=== PATIENT | female | born 1990 | race Caucasian/White ===

== ENCOUNTER 2016-08-23 10:41 | Day surgery (SDC) | payer OTHER ==
[~2016-08-23] VITALS: Ht 154.9 cm; Wt 41.2 kg
[~2016-08-23 10:41] MED LIST: ALBU8CC IH; DOCO200C4 PO; LACTATED RINGERS 1,000 ML IV ONE; LACTATED RINGERS 1,000 ML IV SCH; LEVO500T16 PO; MOME13HF2 IH; MONT10TA21 PO; NORE-142 PO; OXYMETAZOLINE 0.05% NASAL SPRAY (AFRIN) 15 ML BTL ONE; OXYMETAZOLINE 0.05% NASAL SPRAY (AFRIN) 15 ML BTL SCH; SODIUM CHLORIDE FLUSH 3 ML SYR IV SCH; SODIUM CHLORIDE FLUSH 3 ML SYR ONE; TOPI25TA36 PO
--- OUTSIDE RECORDS SUMMARY | 2016-08-23 10:45 | XMS REPORT | Continuity Of Care Document ---
Author Author [facility] Organization [facility] [address] [place] [address] Phone Care Team Providers Care Predatory Hunter Name Role Phone CYNDY HAZEL, RILEY BAIG MD, AKUA Wang PP [phone] Results Lab Results Visit/Account #[id number] (February 14, 2013 8:41pm - February 14, 2013 10:09pm) Test Result Reported Date/Time SERUM HCG, QUALITATIVE SERUM HCG, QUALITATIVE(NEGATIVE) NEGATIVE February 14, 2013 9:36pm Vital Signs Vital Signs Visit/Account #[id number] (February 14, 2013 8:41pm - February 14, 2013 10:09pm) Label First Result Last Result 8310-5: Body Temperature 97.9 degF February 14, 2013 8:39pm 8310-5: Fahrenheit Body Temperature 98.0 [degF] February 14, 2013 10:09pm 8480-6: BP Systolic 133/ mmHg February 14, 2013 8:39pm 80/ mm[Hg] February 14, 2013 10:09pm 8867-4: Heart Rate 91 /min February 14, 2013 8:39pm 88 /min February 14, 2013 10:09pm 9279-1: Respiratory Rate 18 /min February 14, 2013 8:39pm 18 /min February 14, 2013 10:09pm Unmapped Query Mnemonic (RESP.SAT) Saturation 99 % February 14, 2013 8:39pm 99 % February 14, 2013 8:39pm Ordered Medications Ordered Medications Visit/Account #[id number] (February 14, 2013 8:41pm - February 14, 2013 10:09pm) Medication Dose Route Sig/Schedule Precondition/Indication Comments/ Instructions NDC IV Medication Carriers: NORMAL SALINE(SODIUM CHLORIDE) 1000 ML INJECTION 1000 ML IV: INTRAVEN .Q1H (Rate: 1000 MLS/HR Duration: 1 HR) Rx Order Comments: Order placed as verified: Dose Warnings differ from border measurer and cutter Dose Warnings differ from border measurer and cutter Carriers: NORMAL SALINE (SODIUM CHLORIDE): [id number] PHENERGAN INJ(PROMETHazine HCL) 25 MG/ML INJECTION 12.5 MG IV: INTRAVEN Q4H PRN Reason: PRN Reason: NAUSEA/VOMITING Label Comments: For IV use dilute 1 ml with 9 ml of NS and administer through large bore vein (avoiding hand or wrist veins. Give over 10-15 minutes. Administration of diluted product with free-flowing IV decreases patient risk of tissue damage. Patients should be advised to notify the nurse immediately if they experience pain or burning during or after the injection MAY INCREASE FALL RISK PHENERGAN INJ (PROMETHazine HCL): [id number] BENADRYL INJ(DiphenhydrAMINE HCL) 50 MG/ML INJECTION 25 MG IV: INTRAVEN NOW: NOW Rx Order Comments: Order placed as verified: Dose Warnings differ from border measurer and cutter Dose Warnings differ from border measurer and cutter Label Comments: MAY INCREASE FALL RISK BENADRYL INJ (DiphenhydrAMINE HCL): [id number] TORADOL INJ(KETOROLAC TROMETHAMINE) 60 MG/2 ML VIAL 30 MG IV: INTRAVEN NOW: NOW Rx Order Comments: Order placed as verified: Dose Warnings differ from border measurer and cutter Dose Warnings differ from border measurer and cutter TORADOL INJ (KETOROLAC TROMETHAMINE): [id number] History Of Encounters Encounters Visit/Account #[id number] (February 14, 2013 8:41pm - February 14, 2013 10:09pm) No reports exist, or have been identified for inclusion with this encounter.
[2016-08-23 10:48] VITALS: BP 108/72
[2016-08-23] MEDS ORDERED: BACITRACIN OINTMENT 0.9 GM PACKET TOP ONE (11:22)
[2016-08-23] MEDS ORDERED: LIDOCAINE/EPINEPHRINE 1% 1:100,000 (XYLOCAINE) 30 ML VIAL INJ ONE (11:22)
[2016-08-23] MEDS ORDERED: OXYMETAZOLINE 0.05% NASAL SPRAY (AFRIN) 15 ML BTL ONE (11:22)
[2016-08-23 11:25] VITALS: BP 108/72
[2016-08-23] MEDS ORDERED: SUCCINYLCHOLINE 20 MG/ML 10 ML VIAL ONE (12:19)
[2016-08-23] MEDS ORDERED: PROPOFOL 20 ML IV ONE (12:19)
[2016-08-23] MEDS ORDERED: ALFENTANIL 500 MCG/ML (ALFENTA) 5 ML AMP IV ONE (12:19)
[2016-08-23] MEDS ORDERED: MIDAZOLAM 2 MG/2 ML (VERSED) VIAL ONE (12:42)
[2016-08-23] MEDS ORDERED: ACETAMINOPHEN/CODEINE 300MG/30 MG (TYLENOL #3) TABLET PO PRN (13:20)
[2016-08-23] MEDS ORDERED: ONDANSETRON 2 MG/ML (Z0FRAN) 2 ML VIAL IV PRN (13:20)
[2016-08-23] MEDS ORDERED: FLUMAZENIL (ROMAZICON) 0.1 MG/ML 5 ML VIAL ONE (13:57)
[2016-08-23] MEDS ORDERED: NALOXONE 0.4 MG/ML (NARCAN) 1 ML VIAL ONE (13:57)
[2016-08-23 14:26] VITALS: BP 146/92
[2016-08-23 14:42] VITALS: BP 170/93
[2016-08-23 15:00] VITALS: BP 115/41
[2016-08-23 15:13] VITALS: BP 126/84
[2016-08-23] MEDS ORDERED: HYPERTONIC SALINE IRRIGATION 1000 ML BTL IR SCH (21:00)
--- NOTE | 2016-08-24 10:58 | OPERATIVE REPORT ---
DATE OF OPERATION: 08/23/2016 [facility] NO.: [id number] PRE-OPERATIVE DIAGNOSES: Headaches behind the eyes, nasal septal deviation, bilateral inferior turbinate hypertrophy, right maxillary sinus mass. POST-OPERATIVE DIAGNOSES: Headaches behind the eyes, nasal septal deviation, bilateral inferior turbinate hypertrophy, right maxillary sinus mass. OPERATIVE PROCEDURE: 1. Septoplasty. 2. Left partial inferior turbinate reduction. 3. Right partial inferior turbinate reduction. 4. Right maxillary antrostomy. SURGEON: Brad Hagan MD ANESTHESIA: General endotracheal INDICATION: This 26-year-old female has a history of chronic headaches in the temples, back of the head, and behind the eyes. She has been treated for sinus infection 6 times in the last 6 months. OPERATIVE FINDINGS: Right-sided nasal septal deviation superiorly with bone spur to the left posteriorly. Large inferior turbinates bilateral and right maxillary sinus cyst. No evidence of acute or chronic sinus infection. OPERATIVE NOTE: Following informed consent, the patient was taken to the Operating Room and placed in a supine position. Satisfactory general endotracheal anesthesia was obtained. The patient was prepped for surgery with Afrin nasal spray and 1% lidocaine with epinephrine. SEPTOPLASTY: A left sided hemitransfixion incision was performed followed by elevation of a mucoperichondrial flap. The cartilage knife was used to incise the cartilage and elevate a contralateral mucoperichondrial flap followed by removal of a portion of the quadrilateral cartilage using the swivel knife. The inferior aspect of the perpendicular plate of the ethmoid was trimmed with the Luis Enrique-Debbie double action rongeur and a bone spur from posterior was removed with the Yancy forceps. This allowed the flaps to swing back to the midline. Morselized cartilage were replaced between flaps and sutured with 4-0 plain gut suture in a mattress fashion. The hemitransfixion incision was closed with a 4-0 chromic suture. LEFT PARTIAL INFERIOR TURBINATE REDUCTION: The left inferior turbinate was shaved along its inferior and lateral edge using the suction microdebrider removing both soft tissue and bone, decreasing the size of the turbinate by 20%. It was then cauterized with suction electrocautery for hemostasis and then lightly lateralized with the Boies elevator. Afrin packs were then placed in this side of the nose RIGHT PARTIAL INFERIOR TURBINATE REDUCTION: The right inferior turbinate was shaved along its inferior and lateral edge using the suction microdebrider removing both soft tissue and bone, decreasing the size of the turbinate by 20%. It was then cauterized with suction electrocautery for hemostasis and then lightly lateralized with the Boies elevator. Afrin packs were then placed in this side of the nose. RIGHT MAXILLARY ANTROSTOMY: The right side of the nose was again endoscopically evaluated using a 0-degree 4-mm telescope. There is a moderate sized accessory ostium to the maxillary sinus indicating a history of previous infection. From the CT scan it is noted there is a cyst in the floor of the maxillary sinus. The uncinate process was removed with a J-seeker and the back biter and the natural ostium of the maxillary sinus was clearly identified. This was joined to the accessory ostium creating one natural maxillary ostium in the maxillary sinus. Using a 70-degree telescope the sinus was evaluated and was noted to have a simple cyst in its floor. No evidence of infection and no evidence of inflammation. Next the middle turbinates were sutured to the midline using a [id number] 4-0 Vicryl suture in a mattress fashion. This medialized the middle turbinates and opened up the nose widely. Both sides of the nose were again irrigated with saline and suctioned until clear. Afrin packs were placed along the floor of the nose and in the middle meatus. The patient was awakened and taken to the recovery room in good condition.
== END 2016-08-23 15:20 | disposition home or self-care (01) ==
LOC: ASC 10:41
PROVIDERS: ATTEND Otolaryngology
DX: J34.2 Deviated nasal septum (principal); J34.3 Hypertrophy of nasal turbinates; J34.1 Cyst and mucocele of nose and nasal sinus; R51 Headache; J45.909 Unspecified asthma, uncomplicated
CPT/HCPCS: 30130; 30520; 31256; J0330; J2250; J2310; J3490; J7120